=== PATIENT | male | born 1950 | race Caucasian/White ===

== ENCOUNTER 2021-11-14 10:46 | Outpatient (CLI) | payer MEDICARE, SELFPAY ==
--- NOTE | ~2021-11-14 | XR_ITS ---
EXAMINATION: XR barium swallow modified DATE: 11/14/2021 12:08 INDICATION: Dysphagia. TECHNIQUE: The patient was given barium-containing material of multiple consistencies to swallow by xavier foreman speech pathologist while I performed fluoroscopy. Dose-area product was 1 Gy-cm2. 1.6 minutes fluoroscopy time FINDINGS: Oral Stage: Within functional limits Pharyngeal Phase: Within functional limits Cervical/Esophageal Stage: Within functional limits Anterior osteophyte at C4-5. Probable anterior cervical spine fusion at C5-6. IMPRESSION: Modified esophagram findings as above. Please refer to the speech therapy report [facility] Reviewed, dictated and finalized at [facility]. Reviewed, dictated and finalized at location [facility]. ER WRAPPER IMPRESSION: Modified esophagram findings as above. Please refer to the speech t herapy report for specific recommendations.
--- NOTE | 2021-11-17 11:24 | STOPEVAL ---
MODIFIED BARIUM SWALLOW EVALUATION: Thank you for referring Moe Arreola to [facility].? Attending Provider: Luis Wiley MD Modified Barium Swallow Evaluation Recent Swallowing History Reports Dysphagia Yes: random/occasionally chokes; throat irritation at times. Onset of Dysphagia years ago Other Factors Impacting Dysphagia None History of Pneumonia No Reported Difficult Consistencies Thin Liquids,Solids Intake Method Prior to Swallow Oral Evaluation Diet Prior to Swallow Evaluation Regular, Level 7 Liquid Consistency Prior to Swallow Thin (0) Evaluation Consistency Thin Uncontrolled 2 Method of Presentation Straw Oral Preparatory Symptoms None Oral Phase Symptoms None Pharyngeal Phase Symptoms Bony Protuberance,Coating/ Pharyngeal Russell Severity of Vallecular Residue Trace - 1-5 % Trace Coating of the Mucosa Severity of Pyriform Sinus Residue Trace - 1-5 % Trace Coating of the Mucosa 8 Point Laryngeal Penetration-Aspiration Material Does Not Enter Airway Scale Pharyngeal Phase Comments intermittent trace residual at level of the UES (also near level of bony spurs) which cleared with dry swallows. Cervical/Esophageal Symptoms Within Functional Limits Thin Uncontrolled 1 Method of Presentation Cup Oral Preparatory Symptoms None Oral Phase Symptoms None Pharyngeal Phase Symptoms Bony Protuberance Severity of Vallecular Residue Trace - 1-5 % Trace Coating of the Mucosa Severity of Pyriform Sinus Residue Trace - 1-5 % Trace Coating of the Mucosa 8 Point Laryngeal Penetration-Aspiration Material Does Not Enter Airway Scale Pharyngeal Phase Comments intermittent trace residual at level of the UES (also near level of bony spurs) which cleared with dry swallows. Cervical/Esophageal Symptoms Within Functional Limits Solid Consistency Method of Presentation Spoon Oral Preparatory Symptoms None Oral Phase Symptoms None Pharyngeal Phase Symptoms Bony Protuberance Severity of Vallecular Residue Trace - 1-5 % Trace Coating of the Mucosa Severity of Pyriform Sinus Residue Trace - 1-5 % Trace Coating of the Mucosa 8 Point Laryngeal Penetration-Aspiration Material Does Not Enter Airway Scale Pharyngeal Phase Comments intermittent trace residual at
== END 2021-11-14 10:47 | disposition home or self-care (01) ==
LOC: ANHIMG 10:54
PROVIDERS: PCP Internal Medicine; Visit Provider Internal Medicine
DX: R13.13 Dysphagia, pharyngeal phase (principal)
CPT/HCPCS: 92611

== ENCOUNTER 2022-07-09 07:36 | Outpatient (CLI) | payer MEDICARE, SELFPAY ==
--- NOTE | 2022-08-02 18:41 | WPDSLEEPSTUD ---
Sleep Study Date of Study: 07/09/22 Ordering Provider: Preston Caputo DO Interpreting Physician: Munira Santoyo MD Sleep Study Type: BiPAP Titration Height: 1.8 m Weight: 86.183 kg Body Mass Index: 26.4 Neck Circumference (inches): 16.5 [place]: 7 Reason for Sleep Study 05/03/2022- Snap home sleep test performed for loud snoring and an elevated [place]; severe obstructive sleep apnea; apnea-hypopnea index 31.2, central apnea index was 9.4, 18% of the total, lowest saturation was 90%; Patient presents for a PAP titration. Sleep History Moe Arreola is a 71 year-old man with a history of loud snoring and waking during the night. On a May 03 he had a snap home sleep test with an AHI of 31.2 and a central apnea index of 9.4. He is here now for a Pap titration. there is a family history of sleep apnea with his brother using CPAP. Patient is a light sleeper, often wakes up between 2:00 a.m. and 4:00 a.m. from a deep sleep. He does not feel rested. He often has excessive daytime sleepiness. He does not awaken from sleep feeling short of breath or awaken at night with heartburn, belching or coughing. He occasionally snores, rarely loudly enough that others complain. He rarely has trouble sleeping with a cold. Does not wake up gasping for breath at night or have breathing problems at night observed by others. Does not sweat excessively at night. He does not notice his heart pounding or beating irregularly at night. He frequently falls asleep during the day but never involuntarily or while driving. He does not have loss of muscle tone with strong emotion. He may sometimes lose focus during the day or need coffee in order to stay on top of his activities. He is not paralyzed on waking or falling asleep. He frequently has vivid dreamlike scenes on waking or falling asleep. He does not feel afraid to go to sleep. He rarely has nightmares. He occasionally remembers his dreams. He occasionally has racing thoughts. He rarely feels sad, depressed or anxious. He does not have muscular tension. He does not notice parts of his body jerking. He suspects that he kicks at night. He does not have crawling and aching feelings in his legs. He does not have any kind of leg pain at night. He does not have morning jaw pain. He does not grind his teeth at night. He is not bothered by pain during the day or awakened by pain during the night. He rarely wakes up feeling stiff in the morning with sore achy muscles. He is enjoying being retired. He has migraine headaches, fatigue and memory problems. Normal bedtime is 9:30 P.m. to 10:00 p.m., taking 10 minutes to fall asleep, waking 1-2 times over night to go to the bathroom. He is able to return to sleep in 15-20 minutes after waking at night. He takes naps in the afternoon or evening. A short nap is sometimes refreshing. He is drowsy in the morning for an hour until the coffee kicks in. He feels better in the morning compared to other times of day. Habits: Never smoked tobacco. Caffeine: Occasional soda, 2 cups of coffee in the morning, 1-2 cups of iced tea. Alcohol: 1-2 beers or glasses of wine per month. No recreational drugs. [facility] Past Medical History Medical History (Updated 08/02/22 @ 18:50 by Munira Santoyo MD) Essential hypertension Hyperlipidemia LDL goal <130 Pharyngeal dysphagia Post-COVID chronic cough Family History Family History (Updated 08/02/22 @ 18:52 by Munira Santoyo MD) Father Family history of cardiac disorder, Onset Age: 89 Son No problems noted. Daughter No problems noted. Sibling Obstructive sleep apnea Social History Social History Smoking status: Never smoker Alcohol intake: current Medications Home Medications Medication Instructions Recorded Confirmed Type nirmatrelvir 300 mg (150 mg See Rx Instructions PO .COMPLEX 04/28/22 04/28/22 Rx
[2022-08-02 18:45] VITALS: BMI 26.4
== END 2022-07-10 06:58 | disposition home or self-care (01) ==
PROVIDERS: PCP Family Medicine; Visit Provider Family Medicine
DX: G47.33 Obstructive sleep apnea (adult) (pediatric) (principal)
CPT/HCPCS: 95811

== ENCOUNTER 2022-12-01 11:17 | Outpatient (CLI) | payer MEDICARE, SELFPAY ==
[2022-12-01 18:46] LABS: Basophils Percent Auto 0.8 % (0.2-1.2); Eosinophils Absolute Auto 0.1 K/mm3 (0-0.3); Eosinophils Percent Auto 1.5 % (0-4.4); Hemoglobin 14.7 g/dL (14.0-18.0); Immature Granulocyte Absolute 0.01 K/mm3 (0.00-0.031); Immature Granulocyte Percent A 0.2 % (0-0.5); Lymphocytes Absolute Auto 1.44 K/mm3 (0.9-3.2); Lymphocytes Percent Auto 27.4 % (18.3-44.2); Mean Corpuscular HGB Conc 34.2 g/dl (32-36); Mean Corpuscular Hemoglobin 30.8 pg (26-34); Mean Corpuscular Volume 90.1 fl (80-100); Mean Platelet Volume 9.6 fl (7.4-10.4); Monocytes Absolute Auto 0.6 K/mm3 (0.1-0.6); Neutrophils Absolute Auto 3.1 K/mm3 (1.3-6.7); Neutrophils Percent Auto 58.1 % (45.5-73.1); Platelet Count Result 262 k/mm3 (150-375); Red Blood Count 4.77 M/mm3 (4.6-6.20); Red Cell Distribution Width 12.4 % (11.5-14.5); White Blood Count 5.3 K/mm3 (4.5-10.0)
[2022-12-01 19:05] LABS: Alanine Aminotransferase 23 U/L (6-50); Albumin Level 4.5 g/dL (3.5-5.1); Alkaline Phosphatase 54 U/L (38-126); Anion Gap 8 mmol/L (8-16); Aspartate Amino Transferase 21 U/L (17-59); Bilirubin,Total 1.3 mg/dL (0.2-1.3); Blood Urea Nitrogen 22 mg/dL (9-20); Carbon Dioxide 27 mmol/L (22-30); Chloride 107 mmol/L (98-107); Cholesterol 175 mg/dL (0-200); Estimated Glomerular Filt Rate > 60; Glucose 89 mg/dL (65-110); HDL Direct 39 mg/dL; Potassium 3.6 mmol/L (3.4-5.0); Sodium 142 mmol/L (137-145); Triglycerides 98 mg/dL (<150)
[2022-12-01 19:16] LABS: LDL Cholesterol Direct 106 mg/dL
[2022-12-01 19:35] LABS: Prostate Specific Antigen 1.8 ng/mL (< OR = 4.0)
== END 2022-12-01 11:18 | disposition home or self-care (01) ==
LOC: ANHGOSHLAB 11:19
PROVIDERS: PCP Family Medicine; Visit Provider Family Medicine
DX: E78.5 Hyperlipidemia, unspecified (principal); Z12.5 Encounter for screening for malignant neoplasm of prostate; I10 Essential (primary) hypertension; R53.83 Other fatigue
CPT/HCPCS: 36415; 80053; 80061; 84153; 85025; G0103

== ENCOUNTER 2023-02-01 07:30 | Outpatient (CLI) | payer MEDICARE, SELFPAY ==
--- NOTE | 2023-02-01 07:43 | ECHO_ITS ---
Patient Info Name: Moe Arreola Age: 72 years : 1950 Gender: Male Ht: 71 in Wt: 190 lbs BSA: 2.09 m2 HR: 78 bpm BP: 120 / 91 mmHg Technical Quality: Good Exam Date: 02/01/2023 7:52 AM Exam Location: [facility] Patient Status: Outpatient Admit Date: 02/01/2023 Staff Ordering Physician: Rand Singh DO Assembly Line Brazer: Romina Diehl RDCS Attending Provider: Rand Singh DO Referring Physician: Francisco PINEDA; Exam Type: CA echo doppler color flow Study Info Indications G47.31 - PRIMARY CENTRAL SLEEP APNEA Complete two-dimensional, color flow and Doppler transthoracic echocardiogram is performed. Summary 1. Complete two-dimensional, color flow and Doppler transthoracic echocardiogram is performed. 2. Left ventricular chamber dimension is normal. 3. Left ventricular systolic function is normal, estimated at 55-60%. 4. The left ventricular diastolic function is grade I diastolic dysfunction. 5. E/e' 12 is mildly elevated. 6. Global longitudinal strain is abnormal at -15.5%. 7. No pulmonary hypertension, estimated pulmonary arterial systolic pressure is 26 mmHg. Left Ventricle E/e' 12 is mildly elevated. Global longitudinal strain is abnormal at -15.5%. Left ventricular chamber dimension is normal. Left ventricular systolic function is normal, estimated at 55-60%. The left ventricular diastolic function is grade I diastolic dysfunction. Right Ventricle Right ventricular chamber dimension is normal. Right ventricular systolic function is normal. Left Atria Left atrial chamber dimension is normal. Right Atria Right atrial chamber dimension is normal. Aortic Valve The aortic valve is trileaflet. There is no aortic valve stenosis. There is no aortic valve regurgitation. Pulmonic Valve There is no pulmonic regurgitation. Mitral Valve There is no mitral valve stenosis. There is no mitral valve regurgitation. Tricuspid Valve There is no tricuspid valve regurgitation. No pulmonary hypertension, estimated pulmonary arterial systolic pressure is 26 mmHg. Pericardium/Pleural There is no pericardial effusion. Inferior Vena Cava Normal inferior vena cava with >50% collapse upon inspiration consistent with normal right atrial pressure, 5 mmHg. Aorta The aortic root size at the sinus of Valsalva is normal. Left Ventricular Outflow Tract Name Value Normal LVOT 2D LVOT Diameter 2.1 cm LVOT Doppler LVOT Peak Gradient 4 mmHg LVOT Mean Gradient 2 mmHg LVOT VTI 21 cm LVOT VTI/AV VTI Ratio 0.7 LVOT Stroke Volume 73 ml LVOT CO 5.0 l/min LVOT CI 2.4 l/min/m2 Pulmonic Valve Name Value Normal RVOT Doppler RVOT Peak Gradient 1 mmHg PV Doppler
== END 2023-02-01 07:31 | disposition home or self-care (01) ==
PROVIDERS: PCP Family Medicine; Visit Provider Family Medicine
DX: G47.31 Primary central sleep apnea (principal)
CPT/HCPCS: 93306

== ENCOUNTER 2023-12-14 10:16 | Outpatient (CLI) | payer MEDICARE, SELFPAY ==
[2023-12-14 14:36] LABS: Alanine Aminotransferase 17 U/L (6-50); Albumin Level 4.4 g/dL (3.5-5.1); Alkaline Phosphatase 53 U/L (38-126); Anion Gap 4 mmol/L (4-12); Aspartate Amino Transferase 47 U/L (17-59); Blood Urea Nitrogen 22 mg/dL (9-20); Calcium 9.4 mg/dL (8.4-10.2); Carbon Dioxide 29 mmol/L (22-30); Chloride 107 mmol/L (98-107); Cholesterol 198 mg/dL (0-200); Estimated Glomerular Filt Rate > 60; Glucose 96 mg/dL (65-110); HDL Direct 43 mg/dL; Potassium 3.9 mmol/L (3.4-5.0); Sodium 140 mmol/L (137-145); Triglycerides 106 mg/dL (<150)
[2023-12-14 14:47] LABS: LDL Cholesterol Direct 122 mg/dL
== END 2023-12-14 10:17 | disposition home or self-care (01) ==
PROVIDERS: PCP Family Medicine; Visit Provider Family Medicine
DX: E78.5 Hyperlipidemia, unspecified (principal); Z13.220 Encounter for screening for lipoid disorders; Z13.228 Encounter for screening for other metabolic disorders; Z12.5 Encounter for screening for malignant neoplasm of prostate
CPT/HCPCS: 36415; 80053; 80061; 84153; G0103

== ENCOUNTER 2024-01-11 00:17 | Day surgery (SDC) | payer MEDICARE, SELFPAY ==
[2023-12-27 10:33] VITALS: BMI 26.4
[2024-01-11 09:30] VITALS: BP 128/98; PULSE 86; RESP 18; TEMP 35.7; O2SAT 100; BMI 26.2
[2024-01-11] MEDS: LACTATED RINGERS 1,000 ML 150 ML IV CONT (09:50)
--- NOTE | 2024-01-11 10:37 | WPDANESEPPF ---
Anes - Initial Pre Proc Eval Procedure: Operation Date: 01/11/24 10:30 Proposed Procedures p Screening Colonoscopy - Evert Khan DO Date/Time: 01/11/24 10:37 Surgeon: Evert Khan DO Pre Op Diagnosis: Neoplasm screening Patient Data Age: 73 Gender: M Height: 1.8 m Weight: 85.1 kg Last Vital Signs Temp 96.3 F L 01/11/24 09:30 Pulse 86 01/11/24 09:30 Resp 18 01/11/24 09:30 BP 128/98 H 01/11/24 09:30 Pulse Ox 100 01/11/24 09:30 O2 Del Method Room Air 01/11/24 09:30 Allergies Allergy/AdvReac Type Severity Reaction Status Date / Time No Known Allergies Allergy Verified 01/11/24 09:38 Home Medications Medication Instructions Recorded Confirmed Type CPAP 10cm H2O with mask, #1 ea 08/04/22 01/11/24 Rx humidifier chamber, tubing and supplies ascorbic acid (vitamin C) 1,000 mg PO DAILY 07/14/23 01/11/24 History amlodipine 10 mg tablet 10 mg PO DAILY #90 tabs 12/03/23 01/11/24 Rx CPAP #1 ea 12/14/23 01/11/24 Rx cholecalciferol (vitamin D3) 125 250 mcg PO DAILY 12/27/23 01/11/24 History mcg (5,000 unit) tablet (Vitamin D3) Patient hx anesthesia problems: none Family hx anesthesia problems: none Results Review: All pre-operative results and documents have been reviewed as part of the pre-operative evaluation. [facility] Past Medical History Medical History Essential hypertension Hx of nephrolithotomy with removal of calculi Hyperlipidemia LDL goal <130 Kidney stones Pharyngeal dysphagia Post-COVID chronic cough Surgical History Surgical History History of kidney surgery Hx of lithotripsy Hx of tonsillectomy Hx of wisdom tooth extraction Family History Family History Father Family history of cardiac disorder, Onset Age: 89 Son No problems noted. Daughter No problems noted. Sibling Obstructive sleep apnea Social History Social History Social History: caffeine- 3 cups tea/coffee Smoking status: Never smoker Alcohol intake: current Drinks per week: 1 Substance use: never Substance use type: does not use Lack of Transportation: No Lack of Food: Never True Current Housing: I Have Housing Concerned About Future Housing: No Difficulty Paying Gas/Electric Bills: No Difficulty Paying for Meds: No Currently Unemployed: No Education: Bachelor's Degree Difficulty w/ Childcare or Family Care: No Living arrangements: with family Spiritual care concerns: No Anes - Eval Final PreProcedure Day of Procedure 01/11/24 10:37 Patient weight: normal Heart: regular rate and rhythm Lungs: clear to auscultation Airway: Mallampati scale class II Neurological: alert and oriented Last oral intake: >/= 8 hours ASA classification: II Emergent: no Anesthetic plan: proceed Anesthesia type and monitoring: general GIVS and standard monitoring Results Review: All pre-operative results and documents have been reviewed as part of the pre-operative evaluation. Informed Consent: The patient's anesthetic plan and its attendant risks and benefits were discussed with the patient/family/POA. Questions were solicited and answers provided to the satisfaction of the patient/family/POA.
--- NOTE | 2024-01-11 11:06 | PM.IMHP ---
H&P: HPI History of Present Illness Date/Time: 01/11/24 11:06 Chief Complaint: Screening for colorectal cancer Narrative: This is a 73-year-old man who presents for colonoscopy. His last colonoscopy was about 8 years ago and was normal. He denies any hematochezia or melena. He denies family history of colon cancer. Review of Systems Review of Systems: All systems reviewed & are unremarkable except as noted in HPI and below Constitutional: Constitutional: Denies chills, Denies fever(s), Denies headache(s) and Denies weight loss Eyes: Eyes: Denies change in vision ENT: Denies dizziness, Denies headache(s), Denies neck mass and Denies throat swelling Cardiovascular: Cardiovascular: Denies chest pain, Denies lightheadedness and Denies dyspnea Respiratory: Respiratory: Denies cough, Denies dyspnea and Denies wheezing Gastrointestinal: Gastrointestinal: Denies abdominal pain, Denies change in bowel habits, Denies nausea and Denies vomiting Genitourinary: Genitourinary: Denies hematuria and Denies dysuria Musculoskeletal: Musculoskeletal: Reports as per HPI Integumentary/Breasts: Skin/Breast: Reports as per HPI Neurologic: Denies dizziness and Denies headache(s) Allergic/Immunologic: Allergic/Immunologic: Denies throat swelling and Denies wheezing PMFSH Past Medical History Medical History Essential hypertension Hx of nephrolithotomy with removal of calculi Hyperlipidemia LDL goal <130 Kidney stones Pharyngeal dysphagia Post-COVID chronic cough Surgical History Surgical History History of kidney surgery Hx of lithotripsy Hx of tonsillectomy Hx of wisdom tooth extraction Family History Family History Father Family history of cardiac disorder, Onset Age: 89 Son No problems noted. Daughter No problems noted. Sibling Obstructive sleep apnea Social History Social History Social History: caffeine- 3 cups tea/coffee Smoking status: Never smoker Alcohol intake: current Drinks per week: 1 Substance use: never Substance use type: does not use Lack of Transportation: No Lack of Food: Never True Current Housing: I Have Housing Concerned About Future Housing: No Difficulty Paying Gas/Electric Bills: No Difficulty Paying for Meds: No Currently Unemployed: No Education: Bachelor's Degree Difficulty w/ Childcare or Family Care: No Living arrangements: with family Spiritual care concerns: No Meds Home Medications and Allergies Home Medications Medication Instructions Recorded Confirmed Type CPAP 10cm H2O with mask, #1 ea 08/04/22 01/11/24 Rx humidifier chamber, tubing and supplies ascorbic acid (vitamin C) 1,000 mg PO DAILY 07/14/23 01/11/24 History amlodipine 10 mg tablet 10 mg PO DAILY #90 tabs 12/03/23 01/11/24 Rx CPAP #1 ea 12/14/23 01/11/24 Rx cholecalciferol (vitamin D3) 125 250 mcg PO DAILY 12/27/23 01/11/24 History mcg (5,000 unit) tablet (Vitamin D3) Allergies Allergy/AdvReac Type Severity Reaction Status Date / Time No Known Allergies Allergy Verified 01/11/24 09:38 Vital Signs Vital Signs - 24 hr 01/11/24 09:30 Temperature 35.7 C L Pulse Rate 86 Respiratory Rate 18 Blood Pressure 128/98 H Pulse Oximetry 100 Oxygen Delivery Room Air Exam Const: General: no acute distress and alert Orientation/consciousness: patient oriented x3 HENMT: Head: normocephalic and atraumatic Ears: hearing grossly normal bilaterally Face/Nose/Sinus: Normal nares present Mouth: Yes Normal oral and palatal mucosa present Eyes: Periorbital: periorbital findings normal Sclera: sclerae normal EOM: EOMs intact bilaterally Neck: Neck: normal visual inspection, no lymphadenopathy and trachea midline Jenny
[2024-01-11 11:35] VITALS: BP 113/68; PULSE 92; RESP 30; O2SAT 100
[2024-01-11 11:45] VITALS: BP 125/83; PULSE 89; RESP 27; O2SAT 98
[2024-01-11 11:55] VITALS: BP 135/83; PULSE 84; RESP 20; O2SAT 100
== END 2024-01-11 11:59 | disposition home or self-care (01) ==
PROVIDERS: PCP Family Medicine; Visit Provider Surgery
PROC: 0DJD8ZZ Inspection of Lower Intestinal Tract, Via Natural or Artificial Opening Endoscopic (ICD-10-PCS; CPT 45378; principal; 2024-01-11 10:30)
DX: Z12.11 Encounter for screening for malignant neoplasm of colon (principal); D12.5 Benign neoplasm of sigmoid colon; D17.5 Benign lipomatous neoplasm of intra-abdominal organs; K57.30 Diverticulosis of large intestine without perforation or abscess without bleeding; I10 Essential (primary) hypertension; E78.5 Hyperlipidemia, unspecified
CPT/HCPCS: 45385; 88305; J2704; J7120

== ENCOUNTER 2024-06-20 09:56 | Outpatient (CLI) | payer MEDICARE, SELFPAY ==
--- NOTE | ~2024-06-20 | XR_ITS ---
XR abdomen/kub 1V 06/20/2024 10:04 INDICATION: Kidney stones TECHNIQUE: KUB COMPARISON: 02/04/2018 FINDINGS: Bowel gas pattern is normal. Moderate colonic fecal loading. There is no evidence of free a ir, mass, organomegaly, ascites or obstruction. There is a 2-3 mm left renal stone at the lower pole. The bones appear intact. IMPRESSION: 1: Left nephrolithiasis. Reviewed, dictated and finalized at location [facility]. IMPRESSION: 1: Left nephrolithiasis.
== END 2024-06-20 09:57 | disposition home or self-care (01) ==
PROVIDERS: PCP Family Medicine; Visit Provider Family Medicine
DX: N20.0 Calculus of kidney (principal)
CPT/HCPCS: 74018